=== PATIENT | male | born 1940 | race Caucasian/White ===

== ENCOUNTER 2023-12-27 08:23 | Emergency (ER) | payer MEDICARE, SELFPAY ==
[2023-12-27] VITALS (28 sets, daily range): BP systolic 111–165; BP diastolic 68–80; PULSE 44–62; TEMP 36.3; O2SAT 98; BMI 28.3
--- NOTE | 2023-12-27 08:36 | ECG_ITS ---
[facility] Test Date: 2023-12-27 Pat Name: GONZALEZ LINTON Department: Room: - Gender: Male Pathology Assistant: : [id number] Requested By: AJAY MCDOWELL Order Number: [id number] Reading MD: ARMANDO ECHEVARRIA Measurements Intervals [place] Rate: 53 P: 150 MT: 344 QRS: -19 QRSD: 90 T: 21 QT: 592 QTc: 575 Interpretive Statements 1200 Atrial rhythm with first degree AV block 5234 Left ventricular hypertrophy with repolarization abnormality 9150 abnormal ECG Electronically Signed On 12-27-2023 22:44:22 EDT by ARMANDO ECHEVARRIA
--- NOTE | 2023-12-27 08:37 | ED_ITS ---
HPI HPI - General Adult General Chief complaint: Recheck/Abnormal Lab/Rx Stated complaint: ABNORMAL LAB VALUE Time Seen by Provider: 12/27/23 08:28 Source: patient Mode of arrival: walk-in Limitations: no limitations History of Present Illness HPI narrative: Patient presents to ED after being told to come in for recent low potassium. He had his labs drawn in [place] and they called him today and said get to the nearest hospital because his potassium was low. Patient states that he has had history of diarrhea and GI issues for the past 6 months. Patient states he has had CAT scans and scopes and they cannot figure out why he has had this persistent diarrhea. He does deal with some abdominal pain and back pain which again is chronic for him over the past 6 months or so. He denies any bleeding or vomiting. He denies any weakness or heart palpitations. Alert and oriented in no acute distress Related Data Home Medications ?Medication ?Instructions ?Recorded ?Confirmed amlodipine 10 mg tablet mg 12/27/23 carvedilol 12.5 mg tablet mg 12/27/23 chlorthalidone 25 mg tablet mg 12/27/23 donepezil 5 mg tablet mg 12/27/23 dulaglutide 4.5 mg/0.5 mL mg subcut 12/27/23 subcutaneous pen injector (Trulicity) ropinirole 0.25 mg tablet mg 12/27/23 Allergies Allergy/AdvReac Type Severity Reaction Status Date / Time No Known Drug Allergies Allergy Verified 12/27/23 08:36 Opioid HPI Opioid Management Most Recent Opioid Data: No Data to Display Review of Systems ROS Status of ROS 10 or more systems reviewed and unremark able except as noted in history and below PFSH PFSH Social History Little interest or pleasure in doing things: not at all Feeling down, depressed, or hopeless: not at all Exam Narrative Exam Narrative: General: alert, no acute distress Cardiovascular: regular rate and rhythm, normal peripheral perfusion. Respiratory: Lungs CTA, respirations non labored. Extremities: no deformity, no trauma. Neurological: oriented x 4, LOC appropriate for age. Constitutional Vital Signs, click to edit/add: Last Vital Signs Temp 97.4 F L 12/27/23 08:30 Pulse 57 L 12/27/23 14:20 Resp 16 12/27/23 14:20 BP 111/68 12/27/23 14:20 Pulse Ox 98 12/27/23 08:30 Course Vital Signs Vital signs: Vital Signs Temperature 97.4 F L 12/27/23 08:30 Pulse Rate 61 12/27/23 08:30 Respiratory Rate 18 12/27/23 08:30 Blood Pressure 165/80 H 12/27/23 08:30 Pulse Oximetry 98 12/27/23 08:30 Temperature 97.4 F L 12/27/23 08:30 Pulse Rate 57 L 12/27/23 14:20 Respiratory Rate 16 12/27/23 14:20 Blood Pressure 111/68 12/27/23 14:20 Pulse Oximetry 98 12/27/23 08:30 Medical Decision Making MDM Narrative Medical decision making narrative: Patient's potassium was low. Oral potassium as well as IV potassium were ordered For replacement. Potassium was replaced and patient was stable for home. Call family doctor today to schedule follow-up appointment for a redraw on the potassium. Certainly return to the emergency room if worsening symptoms or any further concerns. Patient is comfortable with care plan for home. Differential Diagnosis Differential Diagnosis: Hypokalemia, dehydration, cardiac arrhythmia Medical Records Medical records reviewed: Yes I reviewed the patient's medical records Lab Data Lab results reviewed: Yes I reviewed the patient's lab results Labs: Lab Results 12/27/23 Range/Units 08:43 WBC 7.0 (4.0-11.0) 10^3/uL RBC 4.91 (4.70-6.10) 10^6/uL Hgb 15.4 (14.0-18.0) g/dL Hct 44.1 (42.0-54.0) % MCV 89.8 (80.0-94.0) fL MCH 31.4 (25.9-34.0) pg MCHC 34.9 (29.9-35.2) g/dL RDW 12.9 (11.0-15.0) % Plt Count 268 (150-450) 10^3/uL MPV 9.2 L (9.5-13.5) fL Neut % (Auto) 62.6 (43.0-75.0) % Lymph % (Auto) 24.0 (20.5-60.0) % Bacon % (Auto) 11.2 (1.7-12.0) % Eos % (Auto) 1.7 (0.9-7.0) % Baso % (Auto) 0.4 (0.2-2.0) % Neut # (Auto) 4.4 (1.4-6.5) 10^3/uL Lymph # (Auto) 1.7 (1.2-3.8) 10^3/uL Bacon # (Auto) 0.8 (0.3-0.8) 10^3/uL Eos # (Auto) 0.1 (0.0-0.7) 10^3/uL Baso # (Auto) 0.0 (0.0-0.1) 10^3/uL Abs Immat Gran (auto) 0.01 (0.00-0.03) 10^3/uL Imm/Tot Granulo (auto) 0.1 (0.0-0.5) % Sodium 136 (136-145) mmol/L Potassium 2.4 L* (3.5-5.1) mmol/L Chloride 96 L (98-107) mmol/L Carbon Dioxide 30.5 (21.0-32.0) mmol/L Anion Gap 11.9 BUN 25.0 H (7.0-18.0) mg/dL Creatinine 1.98 H (0.70-1.30) mg/dL Est GFR ( Amer) 40 L (>=60 mL/min/1.73m^2) Est GFR (Non-Af Amer) 33 L (>=60 mL/min/1.73m^2) BUN/Creatinine Ratio 12.6 Glucose 244 H (74-106) mg/dL Calcium 10.3 H (8.5-10.1) mg/dL Total Bilirubin 1.2 H (0.2-1.0) mg/dL AST 18 (15-37) U/L ALT 23 (16-63) U/L Alkaline Phosphatase 63 (46-116) U/L Total Protein 7.5 (6.4-8.2) g/dL Albumin 3.5 (3.4-5.0) g/dL Globulin 4.0 g/dL Albumin/Globulin Ratio 0.9 ECG Data Attestation: I personally reviewed and interpreted this ECG as follows: Interpretation: EKG INTERPRETATION Time: []839 Rate: []53 Rhythm: _Sinus rhythm first-degree AV block ST segments: _ [] T waves: _ [] Ectopy: _ [] P wave/TN interval: _ [] QRS interval: _ [] QT interval: _ [] Comparison: _ [] Comparison EKG date: [] Performed by: [self]No acute ST elevation or depression Discharge Plan Discharge Chief Complaint: Recheck/Abnormal Lab/Rx Clinical Impression: Hypokalemia Patient Disposition: Home, Self-Care Time of Disposition Decision: 14:02 Condition: Good Mode of Transportation: Private Vehicle Prescriptions / Home Meds: No Action carvedilol 12.5 mg tablet donepezil 5 mg tablet chlorthalidone 25 mg tablet ropinirole 0.25 mg tablet amlodipine 10 mg tablet Trulicity 4.5 mg/0.5 mL pen injector SUBCUT Print Language: Ukrainian Instructions: Hypokalemia (ED) Referrals: AJAY MCDOWELL [Primary Care Provider] - 1 week Discharge Date/Time: 12/27/23 14:34
[2023-12-27 08:51] LABS: Basophils Percent Auto 0.4 % (0.2-2.0); Eosinophils Absolute Auto 0.1 10^3/uL (0.0-0.7); Eosinophils Percent Auto 1.7 % (0.9-7.0); Hematocrit 44.1 % (42.0-54.0); Hemoglobin 15.4 g/dL (14.0-18.0); Immature Granulocytes Abs Auto 0.01 10^3/uL (0.00-0.03); Immature Granulocytes Pct Auto 0.1 % (0.0-0.5); Lymphocytes Absolute Auto 1.7 10^3/uL (1.2-3.8); Mean Corpuscular HGB Conc 34.9 g/dL (29.9-35.2); Mean Corpuscular Hemoglobin 31.4 pg (25.9-34.0); Mean Corpuscular Volume 89.8 fL (80.0-94.0); Mean Platelet Volume 9.2 fL (9.5-13.5); Monocytes Absolute Auto 0.8 10^3/uL (0.3-0.8); Monocytes Percent Auto 11.2 % (1.7-12.0); Neutrophils Absolute Auto 4.4 10^3/uL (1.4-6.5); Neutrophils Percent Auto 62.6 % (43.0-75.0); Platelet Count 268 10^3/uL (150-450); Red Blood Count 4.91 10^6/uL (4.70-6.10); Red Cell Distribution Width 12.9 % (11.0-15.0)
[2023-12-27 09:19] LABS: Carbon Dioxide 30.5 mmol/L (21.0-32.0); Chloride 96 mmol/L (98-107); Sodium 136 mmol/L (136-145)
[2023-12-27 09:20] LABS: Anion Gap 11.9; BUN Creatinine Ratio 12.6; Bilirubin Total 1.2 mg/dL (0.2-1.0); Calcium 10.3 mg/dL (8.5-10.1); Estimated GFR (African America 40 (>=60 mL/min/1.73m^2); Estimated GFR (Non-African Ame 33 (>=60 mL/min/1.73m^2); Glucose 244 mg/dL (74-106)
[2023-12-27 09:21] LABS: Alanine Aminotransferase 23 U/L (16-63); Albumin Globulin Ratio 0.9; Albumin Level 3.5 g/dL (3.4-5.0); Alkaline Phosphatase 63 U/L (46-116); Aspartate Amino Transferase 18 U/L (15-37); Total Protein 7.5 g/dL (6.4-8.2)
[2023-12-27 09:24] LABS: Potassium 2.4 mmol/L (3.5-5.1)
[2023-12-27] MEDS: POTASSIUM CHLORIDE 40 MEQ in 0.9 % SODIUM CHLORIDE 250 ML 67.5 MEQ IV (09:47)
[2023-12-27] MEDS: POTASSIUM CHLORIDE 10 MEQ ER TABLET 20 MEQ PO (09:52)
== END 2023-12-27 14:34 | disposition home or self-care (01) ==
PROVIDERS: Emergency Provider Emergency Medicine; PCP Family Medicine
DX: E87.6 Hypokalemia (principal)
CPT/HCPCS: 36415; 80053; 85025; 93005; 96365; 96366; 99284; J3480